=== PATIENT | female | born 1940 | race Caucasian/White ===

== ENCOUNTER → 2021-04-02 16:43 | Outpatient (CLI) | payer MEDICARE, SELFPAY ==
--- NOTE | 2021-04-02 16:52 | RAD_ITS ---
STUDY: X-RAY - THORACIC SPINE REASON FOR EXAM: Female, 80 years old. PAIN TECHNIQUE: 2 view(s) of the thoracic spine were obtained. COMPARISON: None. FINDINGS: Normal kyphosis of the thoracic spine. There is no substantial scoliosis. There is demineralization of the thoracic spine with endplate spondylosis. There is multilevel disc space narrowing of the thoracic spine. The soft tissue structures are unremarkable. RAD/Thoracic Spine 3 Views IMPRESSION: Multilevel degenerative changes, no acute findings Electronically Signed: Carlos Parker MD at 11:27 EDT , Service support ,
--- NOTE | 2021-04-02 16:52 | RAD_ITS ---
STUDY: X-RAY - LUMBOSACRAL SPINE REASON FOR EXAM: Female, 80 years old. PAIN TECHNIQUE: 6 view(s) of the lumbosacral spine were obtained. COMPARISON: None FINDINGS: There is a neural stimulator catheter is noted. There is a prominent rotatory scoliosis with levoscoliosis in the lumbar spine. It is difficult to accurately evaluate the alignment in the lateral view. There is demineralization of the osseous structures, and disc space narrowing throughout the visualized spine. No evidence of spondylolisthesis, no demonstrated fracture RAD/L/S Spine Comp/w Bending Views IMPRESSION: Severe scoliosis. Electronically Signed: Carlos Parker MD at 10:14 EDT , Service support ,
== END ==
PROVIDERS: Referring Provider Anesthesiology Pain Medicine; Visit Provider Anesthesiology Pain Medicine
DX: M51.37 Other intervertebral disc degeneration, lumbosacral region (principal); M51.34 Other intervertebral disc degeneration, thoracic region
CPT/HCPCS: 72072; 72114